=== PATIENT | male | born 1970 | race Caucasian/White ===

== ENCOUNTER 2022-09-29 08:10 | Inpatient (IN) | payer BC ==
[~2022-09-29] VITALS: Ht 180.3 cm; Wt 115.0 kg
[2022-09-29] MEDS ORDERED: ondansetron/PF 4mg/2ml inj IV ONE (08:20)
[2022-09-29] MEDS ORDERED: morphine 4 MG/ML inj SYRINge IV ONE (08:20)
[2022-09-29 08:42] LABS: BASOPHILS % (AUTO) 0.4 % (0-1); EOSINOPHILS % (AUTO) 0.4 % (0-6); HEMATOCRIT 41.4 % (42.0-52.0); HEMOGLOBIN 13.4 g/dl (14.0-17.9); LYMPHOCYTES # (AUTO) 1.3 X10'3 (1.1-4.8); MEAN CORPUSCULAR HGB CONC 32.4 g/dL (33.0-36.5); MEAN CORPUSCULAR VOLUME 89.7 FL (78-98); MEAN PLATELET VOLUME 8.2 FL (7.4-10.4); MONOCYTES # (AUTO) 0.5 X10'3 (0-0.9); NEUTROPHILS # (AUTO) 7.1 X10'3 (1.8-7.7); NEUTROPHILS % (AUTO) 79.2 % (42-75); PLATELET COUNT 180 X10'3 (140-440); RED BLOOD COUNT 4.61 X10'6 (4.70-6.10); RED CELL DISTRIBUTION WIDTH 14.3 % (11.5-14.5)
[2022-09-29 09:00] LABS: ALANINE AMINOTRANSFERASE 109 U/L (12-78); ALBUMIN 3.6 G/DL (3.4-5.0); ALKALINE PHOSPHATASE 67 IU/L (46-116); ANION GAP 12 (8-16); ASPARTATE AMINO TRANSFERASE 46 U/L (10-37); BILIRUBIN,TOTAL 0.4 MG/DL (0.1-1.0); BLOOD UREA NITROGEN 19 MG/DL (7-18); BUN/CREATININE RATIO 10.3 (5.4-32.0); CALCIUM 8.6 MG/DL (8.5-10.1); CHLORIDE 103 MMOL/L (99-107); CREATININE 1.84 MG/DL (0.60-1.10); GLUCOSE 305 MG/DL (70-104); POTASSIUM 3.7 MMOL/L (3.5-5.1); SODIUM 137 MMOL/L (135-145); TOTAL CARBON DIOXIDE 21.7 MMOL/L (24-32); TOTAL PROTEIN 7.2 G/DL (6.4-8.2); eGFR 39 ML/MIN
[2022-09-29 09:01] LABS: D-DIMER < 0.19 MG/L FEU (0-0.50)
[2022-09-29] MEDS ORDERED: potassium Cl 40MEQ/1/2NS 520ml 520 ML IV PRN (10:10)
[2022-09-29] MEDS ORDERED: acetaminophen 325mg tablet PO PRN ×2 (10:10)
[2022-09-29] MEDS ORDERED: ondansetron/PF 4mg/2ml inj IV PRN (10:10)
[2022-09-29] MEDS ORDERED: nitroGLYCERIN 0.4mg SUBLingual tab SL PRN (10:10)
[2022-09-29] MEDS ORDERED: aminophylline 250mg/10ml inj. IV PRN (10:10)
[2022-09-29] MEDS ORDERED: HYDROcodone/acetaminophen 5mg/325mg tablet PO PRN (10:10)
[2022-09-29] MEDS ORDERED: metoprolol tartrate 1mg/ml inj IV PRN (10:10)
[2022-09-29] MEDS ORDERED: pantoprazole 40mg Tablet.DR PO SCH (10:10)
[2022-09-29] MEDS ORDERED: magnesium 4gm in 100ml NS 100 ML IV PRN (10:10)
[2022-09-29] MEDS ORDERED: regadenoson 0.4mg/5ml syringe IV PRN (10:10)
[2022-09-29] MEDS ORDERED: morphine 2 MG/ML inj. syringe IV PRN ×2 (10:10)
[2022-09-29] MEDS ORDERED: potassium Cl 20 mEq SR tablet PO PRN ×2 (10:10)
[2022-09-29] MEDS ORDERED: magnesium Cl slow-release 64mg tablet PO PRN (10:10)
[2022-09-29] MEDS ORDERED: HYDROcodone/acetaminophen 10/325mg tab PO PRN (10:10)
[2022-09-29] MEDS ORDERED: NIFE90TA44 PO (10:35)
[2022-09-29] MEDS ORDERED: DOXA8TAB2 PO ×2 (10:35→13:18)
[2022-09-29] MEDS ORDERED: AZIL1TAB3 PO (10:35)
[2022-09-29] MEDS ORDERED: CLON0.2T PO ×2 (10:35→13:18)
[2022-09-29] MEDS ORDERED: ROSU40TA PO (10:35)
[2022-09-29] MEDS ORDERED: METF-900 PO (10:35)
[2022-09-29] MEDS ORDERED: ASPI-611 PO (10:35)
[2022-09-29] MEDS ORDERED: EVOL140P3 SUBCUT ×2 (10:35→13:16)
[2022-09-29] MEDS ORDERED: SPIR100T5 PO (10:35)
[2022-09-29] MEDS ORDERED: MINO10TA16 PO ×2 (10:35→13:18)
[2022-09-29] MEDS ORDERED: LABE100T8 PO ×2 (10:35→13:18)
--- NOTE | 2022-09-29 10:45 | NUR ---
MESSAGE: JESSICA CRUZ S. IN ROOM 9 MED REC IS COMPLETED, STRESS TEST WILL BE DONE AT 1530 TODAY, EARLENE REZA
[2022-09-29 11:04] LABS: HEMOGLOBIN A1C 6.7 % (4.5-6.2)
[2022-09-29] MEDS: normal saline 1000ml 1,000 ML IV SCH ×2 (11:19→23:53)
[2022-09-29] MEDS ORDERED: heparin 10,000 units/1 ML INJ IV ONE (11:20)
--- NOTE | 2022-09-29 11:23 | NUR ---
CALLED DR. PURVIS ABOUT THE TEOP IF 425, STRESS TEST HAS BEEN CANCELED AND DR. PURVIS IS CALLING THE CARD TEAM
[2022-09-29 12:15] LABS: BASOPHILS % (AUTO) 0.1 % (0-1); EOSINOPHILS % (AUTO) 0.1 % (0-6); HEMATOCRIT 42.4 % (42.0-52.0); HEMOGLOBIN 13.7 g/dl (14.0-17.9); LYMPHOCYTES # (AUTO) 1.1 X10'3 (1.1-4.8); LYMPHOCYTES % (AUTO) 9.3 % (21-51); MEAN CORPUSCULAR HGB CONC 32.4 g/dL (33.0-36.5); MEAN CORPUSCULAR VOLUME 89.6 FL (78-98); MEAN PLATELET VOLUME 8.1 FL (7.4-10.4); MONOCYTES # (AUTO) 0.4 X10'3 (0-0.9); MONOCYTES % (AUTO) 3.4 % (2-12); NEUTROPHILS # (AUTO) 10.5 X10'3 (1.8-7.7); NEUTROPHILS % (AUTO) 87.1 % (42-75); PLATELET COUNT 198 X10'3 (140-440); RED BLOOD COUNT 4.73 X10'6 (4.70-6.10); RED CELL DISTRIBUTION WIDTH 14.3 % (11.5-14.5)
[2022-09-29] MEDS: heparin 25,000 UNIT/250ml bag 250 ML IV PRN (12:18)
[2022-09-29 12:20] LABS: APTT 25 SECONDS (22-32)
[2022-09-29] MEDS ORDERED: NIFE60TA79 PO (13:16)
[2022-09-29] MEDS ORDERED: METF-1203 PO (13:18)
[2022-09-29] MEDS ORDERED: nitroGLYCERIN-Tridil 50MG/D5W 250 ML IV ONE (16:29)
[2022-09-29] MEDS ORDERED: iohexol 350MG/ML 100ml bottle IV ONE ×2 (16:29→18:28)
[2022-09-29] MEDS ORDERED: LIDOcaine 1% (10mg/ml) 2ml vial ONE (16:29)
[2022-09-29] MEDS ORDERED: verapamil 2.5 mg/ml inj IV ONE (16:29)
[2022-09-29] MEDS ORDERED: heparin 1,000unit/ml 10ml vial 10 ML ONE ×2 (16:29→18:32)
[2022-09-29] MEDS ORDERED: fentaNYL/PF 50MCG/1 ML 2ML syringe ONE (16:29)
[2022-09-29] MEDS ORDERED: midazolam 1 mg/ML 2ml injection ONE (16:29)
[2022-09-29 17:39] VITALS: BP 138/78
--- NOTE | 2022-09-29 18:13 | NUR ---
Pt prepped and sent to photographic laboratory technician at appros 1805.
[2022-09-29 19:31] VITALS: BP 143/88
[2022-09-29] MEDS: cloNIDine 0.1 mg tablet PO SCH (19:49)
[2022-09-29 20:00] VITALS: BP 147/78
[2022-09-29] MEDS ORDERED: heparin, porcine 5000 units/ml vial SQ SCH (20:00)
[2022-09-29] MEDS ORDERED: MESSAGE TO NURSING PO ONE ×7 (20:05)
[2022-09-29] MEDS ORDERED: MESSAGE TO PHARMACY IJ ONE (20:05)
[2022-09-29] MEDS ORDERED: temazepam 15mg capsule PO PRN ×2 (20:25→21:00)
[2022-09-29] MEDS ORDERED: ALPRAZolam 0.25mg tablet PO PRN (20:25)
[2022-09-29] MEDS: pantoprazole 40mg Tablet.DR PO SCH (20:42)
[2022-09-29 21:00] VITALS: BP 143/84
[2022-09-29 21:16] LABS: APTT 79 SECONDS (22-32)
[2022-09-29 22:00] VITALS: BP 130/76
[2022-09-29 23:58] LABS: ABG BASE EXCESS -2.1 mmol/L (-2.0-2.0); ABG HCO3 21.9 mmol/L (22.0-26.0); ABG OXYGEN SATURATION 95.6 % (94-97); ABG PCO2 (T) 35.1 mmHg (35.0-48.0); ABG PO2 (T) 74.1 mmHg (75.0-100.0); ALLEN'S TEST Yes; FCOHb 0.1 % (0.0-3.9); FMetHb 0.3 % (0.0-1.5); FO2Hb 95.2 % (94-97); PATIENT TEMPERATURE 36.9; TOTAL HEMOGLOBIN 13.8 G/dl (14.0-17.9)
[2022-09-30 02:00] VITALS: BP 150/67
--- NOTE | 2022-09-30 06:26 | NUR ---
Problems reprioritized. Patient report given, questions answered & plan of care reviewed with Aravind REZA.
--- NOTE | 2022-09-30 06:43 | NUR ---
Problems reprioritized. Patient report given, questions answered & plan of care reviewed with BRIDGER REZA.
[2022-09-30 07:00] VITALS: BP 153/89
[2022-09-30 07:08] LABS: BASOPHILS % (AUTO) 0.5 % (0-1); EOSINOPHILS # (AUTO) 0.2 X10'3 (0-0.9); EOSINOPHILS % (AUTO) 2.2 % (0-6); HEMATOCRIT 39.8 % (42.0-52.0); HEMOGLOBIN 13.5 g/dl (14.0-17.9); LYMPHOCYTES # (AUTO) 2.8 X10'3 (1.1-4.8); LYMPHOCYTES % (AUTO) 28.6 % (21-51); MEAN CORPUSCULAR HEMOGLOBIN 30.3 PG (27.0-31.0); MEAN CORPUSCULAR VOLUME 89.1 FL (78-98); MEAN PLATELET VOLUME 8.2 FL (7.4-10.4); MONOCYTES # (AUTO) 0.6 X10'3 (0-0.9); MONOCYTES % (AUTO) 6.4 % (2-12); NEUTROPHILS # (AUTO) 6.2 X10'3 (1.8-7.7); NEUTROPHILS % (AUTO) 62.3 % (42-75); PLATELET COUNT 183 X10'3 (140-440); RED BLOOD COUNT 4.47 X10'6 (4.70-6.10); RED CELL DISTRIBUTION WIDTH 14.3 % (11.5-14.5); WHITE BLOOD COUNT 9.9 X10'3 (4.5-11.0)
[2022-09-30 07:10] LABS: APTT 32 SECONDS (22-32)
[2022-09-30] MEDS: cloNIDine 0.1 mg tablet PO SCH ×2 (07:51→19:27)
[2022-09-30] MEDS: NIFEdipine XL 30mg tablet PO SCH (07:51)
[2022-09-30] MEDS: pantoprazole 40mg Tablet.DR PO SCH (07:52)
[2022-09-30] MEDS: doxazosin mesylate 2mg tablet PO SCH (07:52)
[2022-09-30 08:35] LABS: ALANINE AMINOTRANSFERASE 109 U/L (12-78); ALBUMIN 3.5 G/DL (3.4-5.0); ALBUMIN/GLOBULIN RATIO 0.9 (1.1-1.5); ALKALINE PHOSPHATASE 66 IU/L (46-116); ANION GAP 7 (8-16); ASPARTATE AMINO TRANSFERASE 67 U/L (10-37); BILIRUBIN,TOTAL 1.1 MG/DL (0.1-1.0); BLOOD UREA NITROGEN 12 MG/DL (7-18); BUN/CREATININE RATIO 9.8 (5.4-32.0); CALCIUM 8.4 MG/DL (8.5-10.1); CHLORIDE 105 MMOL/L (99-107); CREATININE 1.23 MG/DL (0.60-1.10); GLUCOSE 127 MG/DL (70-104); POTASSIUM 3.9 MMOL/L (3.5-5.1); SODIUM 138 MMOL/L (135-145); TOTAL CARBON DIOXIDE 25.8 MMOL/L (24-32); TOTAL PROTEIN 7.2 G/DL (6.4-8.2); eGFR 62 ML/MIN
--- NOTE | 2022-09-30 08:54 | NUR ---
PAGER ID: [phone] MESSAGE: Timothy [id number], pt critical lab value, Trop [phone]
[2022-09-30] MEDS: heparin 10,000 units/1 ML INJ IV PRN (09:06)
[2022-09-30] MEDS ORDERED: MESSAGE TO NURSING PO ONE ×2 (10:00)
[2022-09-30] MEDS ORDERED: MESSAGE TO PHARMACY IJ ONE (10:00)
[2022-09-30] MEDS ORDERED: cefazolin/dext.iso 2gm/100ml 100 ML IV ONE (10:00)
[2022-09-30] MEDS ORDERED: DEXTROSE 15 GM of carb/4 tabs (each vial/BOTTLE has 4 tablets) PO PRN ×2 (10:05)
[2022-09-30] MEDS ORDERED: dextrose 50%-water 50ml dispensing syringe IV PRN ×2 (10:05)
[2022-09-30] MEDS ORDERED: glucagon, human recombinant 1mg kit SUBCUT PRN (10:05)
[2022-09-30] MEDS ORDERED: MESSAGE TO PHARMACY PO ONE (10:05)
[2022-09-30 11:12] VITALS: BP 133/69
--- NOTE | 2022-09-30 14:04 | NUR ---
Cardiac consult: Likely intended to be a DM consult in view of pt with h/o T2DM and no lipid panel this admit. Patient's DM is well controlled with A1c 6.7%, DM education not warranted at this time. Will continue to follow. Addendum: 09/30/22 at [address] Amended: Links added.
[2022-09-30] MEDS: insulin Lispro (HumaLOG) vial - multi-dose SQ SCH (14:12)
[2022-09-30] MEDS: normal saline 1000ml 1,000 ML IV SCH (14:51)
[2022-09-30 15:20] VITALS: BP 122/64
[2022-09-30] MEDS: heparin 25,000 UNIT/250ml bag 250 ML IV PRN (16:29)
[2022-09-30 18:00] VITALS: BP 148/55
[2022-09-30] MEDS: insulin glargine (Lantus) pen - multi-dose SQ SCH (21:00)
[2022-09-30 22:00] VITALS: BP 124/70
[2022-10-01 02:00] VITALS: BP 125/72
[2022-10-01] MEDS: normal saline 1000ml 1,000 ML IV SCH ×3 (05:09→21:35)
--- NOTE | 2022-10-01 06:22 | NUR ---
Problems reprioritized. Patient report given, questions answered & plan of care reviewed with Esau REZA.
--- NOTE | 2022-10-01 06:48 | NUR ---
Patient in room PCU 3013. I have received report from Radha REZA and had the opportunity to ask questions and assume patient care.
[2022-10-01 07:05] LABS: BASOPHILS # (AUTO) 0.1 X10'3 (0-0.2); BASOPHILS % (AUTO) 0.6 % (0-1); EOSINOPHILS # (AUTO) 0.3 X10'3 (0-0.9); HEMATOCRIT 41.3 % (42.0-52.0); HEMOGLOBIN 13.5 g/dl (14.0-17.9); LYMPHOCYTES # (AUTO) 2.4 X10'3 (1.1-4.8); MEAN CORPUSCULAR HEMOGLOBIN 29.5 PG (27.0-31.0); MEAN CORPUSCULAR HGB CONC 32.7 g/dL (33.0-36.5); MEAN CORPUSCULAR VOLUME 90.2 FL (78-98); MEAN PLATELET VOLUME 8.2 FL (7.4-10.4); MONOCYTES # (AUTO) 0.6 X10'3 (0-0.9); NEUTROPHILS # (AUTO) 5.1 X10'3 (1.8-7.7); NEUTROPHILS % (AUTO) 60.4 % (42-75); PLATELET COUNT 183 X10'3 (140-440); RED BLOOD COUNT 4.57 X10'6 (4.70-6.10); RED CELL DISTRIBUTION WIDTH 14.2 % (11.5-14.5); WHITE BLOOD COUNT 8.5 X10'3 (4.5-11.0)
[2022-10-01 07:38] VITALS: BP 133/83
[2022-10-01 07:41] LABS: ALANINE AMINOTRANSFERASE 112 U/L (12-78); ALBUMIN 3.3 G/DL (3.4-5.0); ALBUMIN/GLOBULIN RATIO 0.9 (1.1-1.5); ALKALINE PHOSPHATASE 61 IU/L (46-116); ANION GAP 8 (8-16); ASPARTATE AMINO TRANSFERASE 56 U/L (10-37); BILIRUBIN,TOTAL 0.8 MG/DL (0.1-1.0); BLOOD UREA NITROGEN 13 MG/DL (7-18); BUN/CREATININE RATIO 11.6 (5.4-32.0); CALCIUM 8.8 MG/DL (8.5-10.1); CHLORIDE 105 MMOL/L (99-107); CREATININE 1.12 MG/DL (0.60-1.10); GLUCOSE 119 MG/DL (70-104); POTASSIUM 3.9 MMOL/L (3.5-5.1); SODIUM 138 MMOL/L (135-145); TOTAL CARBON DIOXIDE 25.4 MMOL/L (24-32); TOTAL PROTEIN 6.9 G/DL (6.4-8.2); eGFR 69 ML/MIN
[2022-10-01] MEDS: cloNIDine 0.1 mg tablet PO SCH ×2 (07:48→19:18)
[2022-10-01] MEDS: doxazosin mesylate 2mg tablet PO SCH (07:48)
[2022-10-01] MEDS: NIFEdipine XL 30mg tablet PO SCH (07:48)
[2022-10-01] MEDS: pantoprazole 40mg Tablet.DR PO SCH (07:49)
[2022-10-01] MEDS: insulin Lispro (HumaLOG) vial - multi-dose SQ SCH (10:43)
[2022-10-01 11:01] VITALS: BP 104/55
[2022-10-01] MEDS: heparin 25,000 UNIT/250ml bag 250 ML IV PRN (13:42)
[2022-10-01 15:30] VITALS: BP 128/76
--- NOTE | 2022-10-01 16:01 | NUR ---
Pt refused the afternoon insulin injection. Blood sugar has been very well controlled and he only needed 3 units of insulin as per protocol. Pt was educated and he thought it was best we skip the dose.
[2022-10-01] MEDS: heparin 10,000 units/1 ML INJ IV PRN (17:54)
[2022-10-01 18:00] VITALS: BP 116/77
[2022-10-01] MEDS: insulin glargine (Lantus) pen - multi-dose SQ SCH (21:00)
[2022-10-01 22:00] VITALS: BP 116/66
[2022-10-02 02:00] VITALS: BP 118/66
--- NOTE | 2022-10-02 06:59 | NUR ---
Problems reprioritized. Patient report given, questions answered & plan of care reviewed with Fransico REZA.
[2022-10-02 07:00] VITALS: BP 131/71
[2022-10-02] MEDS: doxazosin mesylate 2mg tablet PO SCH (08:04)
[2022-10-02] MEDS: cloNIDine 0.1 mg tablet PO SCH ×2 (08:04→19:12)
[2022-10-02] MEDS: pantoprazole 40mg Tablet.DR PO SCH (08:04)
[2022-10-02] MEDS: NIFEdipine XL 30mg tablet PO SCH (08:04)
[2022-10-02 08:43] LABS: BASOPHILS # (AUTO) 0.1 X10'3 (0-0.2); BASOPHILS % (AUTO) 0.7 % (0-1); EOSINOPHILS # (AUTO) 0.3 X10'3 (0-0.9); EOSINOPHILS % (AUTO) 4.6 % (0-6); HEMATOCRIT 42.7 % (42.0-52.0); HEMOGLOBIN 14.3 g/dl (14.0-17.9); LYMPHOCYTES # (AUTO) 1.8 X10'3 (1.1-4.8); LYMPHOCYTES % (AUTO) 24.5 % (21-51); MEAN CORPUSCULAR HEMOGLOBIN 29.9 PG (27.0-31.0); MEAN CORPUSCULAR HGB CONC 33.5 g/dL (33.0-36.5); MEAN CORPUSCULAR VOLUME 89.3 FL (78-98); MEAN PLATELET VOLUME 8.1 FL (7.4-10.4); MONOCYTES # (AUTO) 0.3 X10'3 (0-0.9); MONOCYTES % (AUTO) 4.1 % (2-12); NEUTROPHILS # (AUTO) 4.8 X10'3 (1.8-7.7); NEUTROPHILS % (AUTO) 66.1 % (42-75); PLATELET COUNT 196 X10'3 (140-440); RED BLOOD COUNT 4.78 X10'6 (4.70-6.10); RED CELL DISTRIBUTION WIDTH 14.3 % (11.5-14.5); WHITE BLOOD COUNT 7.3 X10'3 (4.5-11.0)
[2022-10-02 09:01] LABS: ALANINE AMINOTRANSFERASE 118 U/L (12-78); ALBUMIN 3.6 G/DL (3.4-5.0); ALBUMIN/GLOBULIN RATIO 0.9 (1.1-1.5); ALKALINE PHOSPHATASE 66 IU/L (46-116); ASPARTATE AMINO TRANSFERASE 51 U/L (10-37); BILIRUBIN,TOTAL 0.9 MG/DL (0.1-1.0); BLOOD UREA NITROGEN 14 MG/DL (7-18); BUN/CREATININE RATIO 11.7 (5.4-32.0); CHLORIDE 103 MMOL/L (99-107); GLUCOSE 227 MG/DL (70-104); TOTAL CARBON DIOXIDE 24.2 MMOL/L (24-32); TOTAL PROTEIN 7.7 G/DL (6.4-8.2); eGFR 64 ML/MIN
[2022-10-02 09:02] LABS: ANION GAP 9 (8-16); SODIUM 136 MMOL/L (135-145)
[2022-10-02 11:00] VITALS: BP 98/53
[2022-10-02] MEDS ORDERED: magnesium hydroxide 30ml (MOM) UD suspension PO ONE ×2 (12:50→12:55)
[2022-10-02] MEDS: allopurinol 100mg tablet PO SCH (15:10)
[2022-10-02 16:07] VITALS: BP 114/64
[2022-10-02 18:00] VITALS: BP 135/78
[2022-10-02] MEDS: insulin glargine (Lantus) pen - multi-dose SQ SCH (21:00)
[2022-10-02] MEDS: ringers solution, lacted 1,000 ML IV SCH ×3 (21:17→21:19)
[2022-10-02] MEDS: heparin 10,000 units/1 ML INJ IV PRN (21:36)
[2022-10-02 22:38] VITALS: BP 117/69
[2022-10-02] MEDS: normal saline 1000ml 1,000 ML IV SCH (23:40)
[2022-10-03 01:18] VITALS: BP 117/65
[2022-10-03 04:00] LABS: BASOPHILS % (AUTO) 0.4 % (0-1); EOSINOPHILS # (AUTO) 0.3 X10'3 (0-0.9); EOSINOPHILS % (AUTO) 3.7 % (0-6); HEMATOCRIT 42.2 % (42.0-52.0); HEMOGLOBIN 13.7 g/dl (14.0-17.9); LYMPHOCYTES # (AUTO) 2.1 X10'3 (1.1-4.8); LYMPHOCYTES % (AUTO) 22.1 % (21-51); MEAN CORPUSCULAR HEMOGLOBIN 29.2 PG (27.0-31.0); MEAN CORPUSCULAR HGB CONC 32.4 g/dL (33.0-36.5); MEAN PLATELET VOLUME 8.4 FL (7.4-10.4); MONOCYTES # (AUTO) 0.7 X10'3 (0-0.9); MONOCYTES % (AUTO) 6.9 % (2-12); NEUTROPHILS # (AUTO) 6.4 X10'3 (1.8-7.7); NEUTROPHILS % (AUTO) 66.9 % (42-75); PLATELET COUNT 197 X10'3 (140-440); RED BLOOD COUNT 4.69 X10'6 (4.70-6.10); RED CELL DISTRIBUTION WIDTH 14.1 % (11.5-14.5); WHITE BLOOD COUNT 9.5 X10'3 (4.5-11.0)
[2022-10-03 04:08] LABS: ALBUMIN 3.4 G/DL (3.4-5.0); ALBUMIN/GLOBULIN RATIO 0.9 (1.1-1.5); ANION GAP 8 (8-16); ASPARTATE AMINO TRANSFERASE 48 U/L (10-37); BILIRUBIN,TOTAL 0.7 MG/DL (0.1-1.0); BLOOD UREA NITROGEN 14 MG/DL (7-18); BUN/CREATININE RATIO 11.6 (5.4-32.0); CALCIUM 8.9 MG/DL (8.5-10.1); CHLORIDE 105 MMOL/L (99-107); CREATININE 1.21 MG/DL (0.60-1.10); GLUCOSE 129 MG/DL (70-104); POTASSIUM 4.2 MMOL/L (3.5-5.1); SODIUM 138 MMOL/L (135-145); TOTAL CARBON DIOXIDE 25.2 MMOL/L (24-32); TOTAL PROTEIN 7.2 G/DL (6.4-8.2); eGFR 63 ML/MIN
[2022-10-03 04:09] LABS: ALANINE AMINOTRANSFERASE 110 U/L (12-78); ALKALINE PHOSPHATASE 61 IU/L (46-116)
[2022-10-03] MEDS: heparin 25,000 UNIT/250ml bag 250 ML IV PRN ×2 (04:47→23:35)
[2022-10-03 07:24] VITALS: BP 132/85
[2022-10-03] MEDS: pantoprazole 40mg Tablet.DR PO SCH (08:28)
[2022-10-03] MEDS: allopurinol 100mg tablet PO SCH (08:28)
[2022-10-03] MEDS: cloNIDine 0.1 mg tablet PO SCH ×2 (08:28→19:06)
[2022-10-03] MEDS: doxazosin mesylate 2mg tablet PO SCH (08:29)
[2022-10-03] MEDS: NIFEdipine XL 30mg tablet PO SCH (08:29)
[2022-10-03 11:30] VITALS: BP 110/62
[2022-10-03 15:09] VITALS: BP 106/63
[2022-10-03] MEDS: normal saline 1000ml 1,000 ML IV SCH (15:15)
[2022-10-03 18:00] VITALS: BP 105/56
[2022-10-03] MEDS: ringers solution, lacted 1,000 ML IV SCH (18:00)
[2022-10-03] MEDS: insulin glargine (Lantus) pen - multi-dose SQ SCH (20:43)
[2022-10-03 22:35] VITALS: BP 127/82
[2022-10-04 02:23] VITALS: BP 116/71
[2022-10-04] MEDS: normal saline 1000ml 1,000 ML IV SCH ×2 (04:05→18:42)
[2022-10-04 06:52] LABS: BASOPHILS % (AUTO) 0.5 % (0-1); EOSINOPHILS # (AUTO) 0.3 X10'3 (0-0.9); EOSINOPHILS % (AUTO) 4.4 % (0-6); HEMATOCRIT 42.1 % (42.0-52.0); HEMOGLOBIN 14.1 g/dl (14.0-17.9); LYMPHOCYTES # (AUTO) 2.2 X10'3 (1.1-4.8); LYMPHOCYTES % (AUTO) 29.5 % (21-51); MEAN CORPUSCULAR HEMOGLOBIN 30.2 PG (27.0-31.0); MEAN CORPUSCULAR HGB CONC 33.6 g/dL (33.0-36.5); MEAN CORPUSCULAR VOLUME 89.9 FL (78-98); MEAN PLATELET VOLUME 8.1 FL (7.4-10.4); MONOCYTES # (AUTO) 0.5 X10'3 (0-0.9); MONOCYTES % (AUTO) 6.7 % (2-12); NEUTROPHILS # (AUTO) 4.4 X10'3 (1.8-7.7); NEUTROPHILS % (AUTO) 58.9 % (42-75); PLATELET COUNT 204 X10'3 (140-440); RED BLOOD COUNT 4.68 X10'6 (4.70-6.10); RED CELL DISTRIBUTION WIDTH 14.2 % (11.5-14.5); WHITE BLOOD COUNT 7.5 X10'3 (4.5-11.0)
[2022-10-04 07:00] VITALS: BP 140/82
[2022-10-04 07:14] LABS: ALANINE AMINOTRANSFERASE 136 U/L (12-78); ALBUMIN 3.7 G/DL (3.4-5.0); ALBUMIN/GLOBULIN RATIO 0.9 (1.1-1.5); ALKALINE PHOSPHATASE 68 IU/L (46-116); ANION GAP 10 (8-16); ASPARTATE AMINO TRANSFERASE 69 U/L (10-37); BILIRUBIN,TOTAL 0.6 MG/DL (0.1-1.0); BLOOD UREA NITROGEN 12 MG/DL (7-18); BUN/CREATININE RATIO 9.6 (5.4-32.0); CALCIUM 8.8 MG/DL (8.5-10.1); CHLORIDE 104 MMOL/L (99-107); CREATININE 1.25 MG/DL (0.60-1.10); GLUCOSE 106 MG/DL (70-104); SODIUM 140 MMOL/L (135-145); TOTAL CARBON DIOXIDE 26.3 MMOL/L (24-32); TOTAL PROTEIN 7.7 G/DL (6.4-8.2); eGFR 61 ML/MIN
[2022-10-04] MEDS: doxazosin mesylate 2mg tablet PO SCH (07:56)
[2022-10-04] MEDS: NIFEdipine XL 30mg tablet PO SCH (07:56)
[2022-10-04] MEDS: pantoprazole 40mg Tablet.DR PO SCH (07:56)
[2022-10-04] MEDS: allopurinol 100mg tablet PO SCH (07:57)
[2022-10-04] MEDS: cloNIDine 0.1 mg tablet PO SCH ×2 (07:57→20:48)
[2022-10-04] MEDS ORDERED: MESSAGE TO NURSING PO ONE (08:20)
[2022-10-04] MEDS ORDERED: MESSAGE TO PHARMACY IJ ONE (08:20)
[2022-10-04] MEDS ORDERED: dextrose 50%-water 50ml dispensing syringe IV PRN (08:20)
--- NOTE | 2022-10-04 09:28 | NUR ---
Initial: Pt admit DX CAD, HTN, and CKD 3 hx T2DM A1C 6.7% per EMR. Pt PO ~100% most carb controlled diet meeting ~93% kcal and 100% protein estimated needs. Pending OR tomorrow for CABG per EMR. LBM 10/02. No nutrition interventions at this time; consider Kapil ONS for wound healing once post-op. Will continue to follow. Rec: 1. continue carb controlled diet 2. once post-op; consider Kapil ONS and MVI for wound healing 3. routine bowel care 4. weekly wts Addendum: 10/04/22 at [address] Amended: Links added.
[2022-10-04 11:00] VITALS: BP 115/62
[2022-10-04] MEDS: ringers solution, lacted 1,000 ML IV SCH (14:00)
[2022-10-04 16:09] VITALS: BP 116/67
[2022-10-04 18:00] VITALS: BP 117/60
[2022-10-04] MEDS: heparin 25,000 UNIT/250ml bag 250 ML IV PRN (18:44)
[2022-10-04] MEDS: heparin 10,000 units/1 ML INJ IV PRN (20:39)
[2022-10-04] MEDS: insulin glargine (Lantus) pen - multi-dose SQ SCH (21:00)
[2022-10-04 23:10] VITALS: BP 146/93
[2022-10-05] VITALS (16 sets, daily range): BP systolic 109–206; BP diastolic 52–113
[2022-10-05] MEDS ORDERED: heparin 25,000 UNIT/250ml bag 250 ML IV PRN (04:45)
[2022-10-05] MEDS ORDERED: cefazolin/dext.iso 2gm/50ml 50 ML IV ONE (05:00)
[2022-10-05] MEDS ORDERED: insulin glargine (Lantus) pen - multi-dose SQ PRN ×2 (05:30→13:10)
[2022-10-05] MEDS ORDERED: gabapentin 400mg capsule PO ONE (05:30)
[2022-10-05] MEDS ORDERED: epiNEPHrine 1 mg/ml inj ONE (05:49)
[2022-10-05] MEDS ORDERED: ceFAZolin 1000mg inj ONE (05:50)
[2022-10-05] MEDS ORDERED: BUPIVAcaine 0.5% inj/PF 30 ML ONE ×2 (05:50→06:58)
--- NOTE | 2022-10-05 06:56 | NUR ---
Called Dr Alcazar: missing pre op meds: beta orion, pepcid, ativan. He is on his way up to the floor and will review meds.
[2022-10-05] MEDS ORDERED: metoprolol succinate 25mg (24-HOUR) SR. Tablet PO ONE (07:00)
--- NOTE | 2022-10-05 07:04 | NUR ---
Per Dr Alcazar: give protonix, xanax, elmira, and toprol xl. Ok to miss does the rest of the PO meds.
[2022-10-05] MEDS: pantoprazole 40mg Tablet.DR PO SCH (07:18)
[2022-10-05] MEDS ORDERED: albumin (Human) 5% 250ml 250 ML IV ONE ×2 (07:35)
[2022-10-05] MEDS ORDERED: propofol inj 20 ML IV ONE (07:35)
[2022-10-05] MEDS ORDERED: LIDOcaine 2% (20mg/ml) 5ml vial ONE (07:35)
[2022-10-05] MEDS ORDERED: MIDAZolam 1mg/ml 10ml vial ONE (07:44)
[2022-10-05] MEDS ORDERED: fentaNYL /PF 50mcg/ml 5ml ampule ONE ×3 (07:44→10:52)
--- NOTE | 2022-10-05 07:45 | NUR ---
Pt taken to [facility] - all personal belongings were sent home with sister Sherly.
[2022-10-05] MEDS ORDERED: nitroGLYCERIN in D5W 50mg/250ml (Tridil) infusion IV ONE (07:48)
[2022-10-05] MEDS ORDERED: dexamethasone sod phosphate 10mg/ml inj ONE (07:48)
[2022-10-05] MEDS ORDERED: ondansetron/PF 4mg/2ml inj ONE (07:48)
[2022-10-05] MEDS ORDERED: NORepinephrine 8 MG in NS 250 ML BAG (32 mcg/ml) IV ONE (07:48)
[2022-10-05] MEDS ORDERED: rocuronium 10mg/ml inj IV ONE ×5 (07:48→10:52)
[2022-10-05] MEDS ORDERED: sevoflurane 250ml liquid IH ONE (07:48)
[2022-10-05] MEDS: doxazosin mesylate 2mg tablet PO SCH (08:00)
[2022-10-05] MEDS: NIFEdipine XL 30mg tablet PO SCH (08:00)
[2022-10-05] MEDS: cloNIDine 0.1 mg tablet PO SCH (08:00)
[2022-10-05] MEDS: allopurinol 100mg tablet PO SCH (08:01)
[2022-10-05] MEDS: ROPIVAcaine 0.2%/PF PUMP 545 ML MEDSTERN SCH ×2 (08:15→13:25)
[2022-10-05 08:35] LABS: ABG BASE EXCESS -3.7 mmol/L (-2.0-2.0); ABG HCO3 21.8 mmol/L (22.0-26.0); ABG OXYGEN SATURATION 99.6 % (94-97); ABG PCO2 41.2 mmHg (35.0-48.0); ABG PO2 253.2 mmHg (75.0-100.0); CL (ABG) 106 mmol/L (99-107); FCOHb 0.3 % (0.0-3.9); FMetHb 0.3 % (0.0-1.5); GLUCOSE (ABG) 122 mg/dl (70-104); IONIZED CA (ABG) 1.21 mmol/L (1.10-1.30); K (ABG) 3.9 mmol/L (3.5-5.1); TOTAL HEMOGLOBIN 13.4 G/dl (14.0-17.9)
[2022-10-05 08:58] LABS: ACT @ 1.70 U 256 SEC (193-297); ACT @ 2.84 U 350 SEC (260-420); BASELINE ACT 142 SEC (101-148)
[2022-10-05] MEDS ORDERED: heparin 10,000 units/1 ML INJ ONE (09:00)
[2022-10-05] MEDS ORDERED: epiNEPHrine 1 mg/ml inj IU ONE (09:04)
[2022-10-05] MEDS ORDERED: heparin 10,000 units/1 ML INJ IR ONE (09:05)
[2022-10-05] MEDS ORDERED: ceFAZolin 1000mg inj IR ONE (09:06)
[2022-10-05] MEDS ORDERED: BUPIVAcaine 0.5% inj/PF 30 ml vial IJ ONE (09:08)
[2022-10-05] MEDS ORDERED: papaverine 30 mg/ml 2ml inj. ICAR ONE (09:09)
[2022-10-05] MEDS ORDERED: esmolol inj. 10 ML IV ONE (09:14)
[2022-10-05] MEDS ORDERED: labetalol 20mg/4ml (5mg/ml) syringe IV ONE (11:57)
[2022-10-05 12:17] LABS: ABG HCO3 21.3 mmol/L (22.0-26.0); ABG PCO2 44.4 mmHg (35.0-48.0); ABG PO2 143.6 mmHg (75.0-100.0); CL (ABG) 105 mmol/L (99-107); FCOHb 0.9 % (0.0-3.9); FMetHb 0.3 % (0.0-1.5); FO2Hb 97.8 % (94-97); GLUCOSE (ABG) 165 mg/dl (70-104); IONIZED CA (ABG) 1.17 mmol/L (1.10-1.30); K (ABG) 4.6 mmol/L (3.5-5.1); TOTAL HEMOGLOBIN 12.9 G/dl (14.0-17.9)
[2022-10-05 12:20] LABS: ACTIVATED CLOTTING TIME 137 SEC (101-148)
[2022-10-05] MEDS ORDERED: albumin (Human) 5% 250ml 250 ML IV PRN (13:10)
[2022-10-05] MEDS ORDERED: Neutra Phos packet PO PRN (13:10)
[2022-10-05] MEDS ORDERED: magnesium citrate 296ml oral solution PO PRN (13:10)
[2022-10-05] MEDS ORDERED: niCARDipine-NS 40mg/200ml IVPB 200 ML IV PRN (13:10)
[2022-10-05] MEDS ORDERED: magnesium hydroxide 30ml (MOM) UD suspension PO PRN (13:10)
[2022-10-05] MEDS ORDERED: dextrose 50%-water 50ml dispensing syringe IV PRN (13:10)
[2022-10-05] MEDS ORDERED: metoclopramide 5 mg/ml inj IV PRN (13:10)
[2022-10-05] MEDS ORDERED: magnesium 2GM in 50ml NS 50 ML IV PRN (13:10)
[2022-10-05] MEDS ORDERED: bisacodyl 10mg suppository rectal RC PRN (13:10)
[2022-10-05] MEDS ORDERED: mineral oil 133ml enema RC PRN (13:10)
[2022-10-05] MEDS ORDERED: ondansetron/PF 4mg/2ml inj IV PRN (13:10)
[2022-10-05] MEDS ORDERED: morphine 2 MG/ML inj. syringe IV PRN (13:10)
[2022-10-05] MEDS ORDERED: DOPamine 400mg/D5W 250ml 250 ML IV PRN (13:10)
[2022-10-05] MEDS ORDERED: acetaminophen 325mg tablet PO PRN (13:10)
[2022-10-05] MEDS ORDERED: nitroGLYCERIN-Tridil 50MG/D5W 250 ML IV PRN (13:10)
[2022-10-05] MEDS ORDERED: magnesium 4gm in 100ml NS 100 ML IV PRN (13:10)
[2022-10-05] MEDS ORDERED: morphine 4 MG/ML inj SYRINge IV PRN (13:10)
[2022-10-05] MEDS ORDERED: Insulin Reg/NS 100units/100mL 100 ML IV SCH (13:10)
[2022-10-05] MEDS ORDERED: sodium phosphate inj. 15 MMOL in dextrose 5%-water 250 ML IV PRN (13:10)
[2022-10-05] MEDS ORDERED: sodium phosphate inj. 30 MMOL in dextrose 5%-water 250 ML IV PRN (13:10)
[2022-10-05] MEDS ORDERED: potassium CL 10mEq/100ml bag 100 ML IV PRN (13:10)
[2022-10-05] MEDS: sodium chloride 0.45% 1,000 ML IV SCH (13:10)
[2022-10-05] MEDS ORDERED: potassium Cl 40MEQ/270ML bag 250 ML IV PRN (13:10)
[2022-10-05] MEDS ORDERED: potassium Cl 40MEQ/1/2NS 520ml 520 ML IV PRN (13:10)
[2022-10-05] MEDS ORDERED: potassium Cl 20 mEq SR tablet PO PRN (13:10)
[2022-10-05] MEDS ORDERED: normal saline 250ml IV soln 250 ML IV PRN (13:10)
[2022-10-05 13:47] LABS: BASOPHILS % (AUTO) 0.1 % (0-1); EOSINOPHILS % (AUTO) 0.2 % (0-6); HEMATOCRIT 36.7 % (42.0-52.0); HEMOGLOBIN 11.9 g/dl (14.0-17.9); LYMPHOCYTES % (AUTO) 5.9 % (21-51); MEAN CORPUSCULAR HGB CONC 32.4 g/dL (33.0-36.5); MEAN CORPUSCULAR VOLUME 89.7 FL (78-98); MONOCYTES # (AUTO) 0.7 X10'3 (0-0.9); MONOCYTES % (AUTO) 4.2 % (2-12); NEUTROPHILS # (AUTO) 14.5 X10'3 (1.8-7.7); NEUTROPHILS % (AUTO) 89.6 % (42-75); PLATELET COUNT 171 X10'3 (140-440); RED CELL DISTRIBUTION WIDTH 14.1 % (11.5-14.5); WHITE BLOOD COUNT 16.2 X10'3 (4.5-11.0)
[2022-10-05 13:47] LABS: ABG OXYGEN SATURATION 96.3 % (94-97); ABG PCO2 (T) 34.7 mmHg (35.0-48.0); ABG PO2 (T) 86.1 mmHg (75.0-100.0); FMetHb 0.3 % (0.0-1.5); PEEP 5 cm H2O; RESPIRATORY RATE 10 b/min; TIDAL VOLUME 650 mL
--- NOTE | 2022-10-05 14:00 | NUR ---
1320 Patient arrived via bed with [facility] team. Patient very hypertensive at time of arrival with SBP as high as 230. Nitro turned up and Cardene started per MD order. 4 mg of Morphine also given for patient's pain. Patient blood pressure responded well and the cardene was quickly titrated off. [address] elevation and Dr. Alcazar was called. He was not concerned at this time so no new orders for that. He was also told the ABG results and then he ordered for one amp of Bicarb to be given IVP x1.
[2022-10-05 14:04] LABS: APTT 27 SECONDS (22-32)
[2022-10-05 14:07] LABS: ALANINE AMINOTRANSFERASE 103 U/L (12-78); ALBUMIN 3.2 G/DL (3.4-5.0); ALBUMIN/GLOBULIN RATIO 1.1 (1.1-1.5); ALKALINE PHOSPHATASE 51 IU/L (46-116); ANION GAP 5 (8-16); ASPARTATE AMINO TRANSFERASE 55 U/L (10-37); BILIRUBIN,TOTAL 0.8 MG/DL (0.1-1.0); BLOOD UREA NITROGEN 10 MG/DL (7-18); CALCIUM 7.6 MG/DL (8.5-10.1); CHLORIDE 106 MMOL/L (99-107); CREATININE 1.11 MG/DL (0.60-1.10); GLUCOSE 157 MG/DL (70-104); MAGNESIUM 1.6 MG/DL (1.5-2.4); PHOSPHORUS 3.1 MG/DL (2.3-4.5); POTASSIUM 4.4 MMOL/L (3.5-5.1); SODIUM 136 MMOL/L (135-145); TOTAL PROTEIN 6.2 G/DL (6.4-8.2); eGFR 70 ML/MIN
[2022-10-05] MEDS: Insulin Reg/NS 100units/100mL 100 ML IV SCH (14:07)
--- NOTE | 2022-10-05 14:09 | NUR ---
Nutrition Consult: Pt s/p CABGx3 today per EMR; would benefit from written/verbal high protein/HH diet eds once appropriate post-op prior to discharge. Addendum: 10/05/22 at [address] Amended: Links added.
[2022-10-05] MEDS ORDERED: sodium bicarbonate (8.4%) inj. 1 MEQ/ML ML ONE (14:10)
[2022-10-05] MEDS ORDERED: sodium bicarbonate (8.4%) inj. 50 MEQ in dextrose 5%-water 1,000 ML IV SCH (14:10)
--- NOTE | 2022-10-05 14:30 | NUR ---
Dr. Alcazar bedside and very pleased with the patient's progress. He looked at the 12 leak and stated that the ST elevation was fine and he wasn't worried about it at this time.
[2022-10-05] MEDS: potassium Cl 20mEq/100mL bag 100 ML IV PRN ×2 (15:50→16:42)
[2022-10-05] MEDS: ceFAZolin/D5W- 1GM premix 50 ML IV SCH (15:50)
--- NOTE | 2022-10-05 16:21 | NUR ---
Dr. Alcazar stated to go ahead and extubate patient if weaning parameters are within normal limits
--- NOTE | 2022-10-05 16:25 | NUR ---
Patient extubated via RT. Patient placed on 4L NC and tolerated well.
--- NOTE | 2022-10-05 18:12 | NUR ---
Problems reprioritized. Patient report given, questions answered & plan of care reviewed with LIBIA Eid.
--- NOTE | 2022-10-05 18:31 | NUR ---
Patient in room CICU 2010. I have received report from Bozena REZA and had the opportunity to ask questions and assume patient care.
[2022-10-05] MEDS: HYDROcodone/acetaminophen 10/325mg tab PO PRN (19:15)
[2022-10-05] MEDS: sennosides/docusate sodium tablet PO SCH (20:00)
--- NOTE | 2022-10-05 20:10 | NUR ---
Pt laying in CICU bed 2011b, A&O x4, sleeping but wakes easily and answers questions appropriately. Heart tones clear, S1S2 with a pericardial rub present, pulses 3+, no edema noted. Lungs sounds clear bilateral upper and lower lobes. Pt able to SIMEON, CSM intact, equal strength throughout. Island dressing present over sternal incision; incision well approximated no bleeding noted at this time. Chest tubes x3 noted to anterior lower chest secured with suture, sanguinous output draining to 2 atriums. Pt has had some water to drink and is tolerating it well, no nausea or vomiting.
[2022-10-05 20:32] LABS: BASOPHILS % (AUTO) 0.1 % (0-1); EOSINOPHILS % (AUTO) 0 % (0-6); HEMATOCRIT 34.3 % (42.0-52.0); HEMOGLOBIN 11.5 g/dl (14.0-17.9); LYMPHOCYTES # (AUTO) 0.6 X10'3 (1.1-4.8); LYMPHOCYTES % (AUTO) 4.5 % (21-51); MEAN CORPUSCULAR HGB CONC 33.7 g/dL (33.0-36.5); MEAN CORPUSCULAR VOLUME 89.2 FL (78-98); MEAN PLATELET VOLUME 7.7 FL (7.4-10.4); MONOCYTES % (AUTO) 7.4 % (2-12); NEUTROPHILS # (AUTO) 11.8 X10'3 (1.8-7.7); PLATELET COUNT 180 X10'3 (140-440); RED BLOOD COUNT 3.84 X10'6 (4.70-6.10); RED CELL DISTRIBUTION WIDTH 14.3 % (11.5-14.5); WHITE BLOOD COUNT 13.4 X10'3 (4.5-11.0)
[2022-10-05 20:45] LABS: ALBUMIN 3.2 G/DL (3.4-5.0); ANION GAP 5 (8-16); BLOOD UREA NITROGEN 13 MG/DL (7-18); BUN/CREATININE RATIO 10.1 (5.4-32.0); CALCIUM 7.8 MG/DL (8.5-10.1); CHLORIDE 106 MMOL/L (99-107); CREATININE 1.29 MG/DL (0.60-1.10); GLUCOSE 107 MG/DL (70-104); MAGNESIUM 3.2 MG/DL (1.5-2.4); PHOSPHORUS 2.5 MG/DL (2.3-4.5); POTASSIUM 4.4 MMOL/L (3.5-5.1); SODIUM 137 MMOL/L (135-145); TOTAL CARBON DIOXIDE 26.5 MMOL/L (24-32); eGFR 58 ML/MIN
[2022-10-05] MEDS: mupirocin 2% nasal ointment 1gm UD NS SCH (20:54)
[2022-10-05] MEDS: atorvastatin 10mg tablet PO SCH (20:54)
[2022-10-05] MEDS: gabapentin 300mg capsule PO SCH (20:54)
[2022-10-05] MEDS: vancomycin/NS 1 GM ADD-VANTAGE 250 ML IV SCH (20:55)
[2022-10-06] VITALS (24 sets, daily range): BP systolic 100–159; BP diastolic 45–95
[2022-10-06] MEDS: ceFAZolin/D5W- 1GM premix 50 ML IV SCH ×3 (00:04→16:20)
[2022-10-06] MEDS: HYDROcodone/acetaminophen 10/325mg tab PO PRN ×5 (01:14→20:34)
--- NOTE | 2022-10-06 02:47 | NUR ---
Pt still resting comfortably, vital signs remaining stable. Pt's pain level is well controlled with norco.
[2022-10-06 03:08] LABS: BASOPHILS % (AUTO) 0 % (0-1); EOSINOPHILS % (AUTO) 0 % (0-6); HEMATOCRIT 33.8 % (42.0-52.0); HEMOGLOBIN 11.1 g/dl (14.0-17.9); LYMPHOCYTES # (AUTO) 1.2 X10'3 (1.1-4.8); LYMPHOCYTES % (AUTO) 8.2 % (21-51); MEAN CORPUSCULAR HEMOGLOBIN 29.7 PG (27.0-31.0); MEAN CORPUSCULAR HGB CONC 32.8 g/dL (33.0-36.5); MEAN CORPUSCULAR VOLUME 90.6 FL (78-98); MEAN PLATELET VOLUME 8.1 FL (7.4-10.4); MONOCYTES # (AUTO) 1.6 X10'3 (0-0.9); MONOCYTES % (AUTO) 10.8 % (2-12); NEUTROPHILS # (AUTO) 11.9 X10'3 (1.8-7.7); PLATELET COUNT 174 X10'3 (140-440); RED BLOOD COUNT 3.73 X10'6 (4.70-6.10); RED CELL DISTRIBUTION WIDTH 14.4 % (11.5-14.5); WHITE BLOOD COUNT 14.7 X10'3 (4.5-11.0)
[2022-10-06 03:15] LABS: APTT 28 SECONDS (22-32)
[2022-10-06 03:17] LABS: ALANINE AMINOTRANSFERASE 84 U/L (12-78); ALBUMIN 2.9 G/DL (3.4-5.0); ALKALINE PHOSPHATASE 45 IU/L (46-116); ANION GAP 5 (8-16); ASPARTATE AMINO TRANSFERASE 61 U/L (10-37); BILIRUBIN,TOTAL 0.4 MG/DL (0.1-1.0); BLOOD UREA NITROGEN 13 MG/DL (7-18); BUN/CREATININE RATIO 10.1 (5.4-32.0); CALCIUM 7.8 MG/DL (8.5-10.1); CHLORIDE 106 MMOL/L (99-107); CREATININE 1.29 MG/DL (0.60-1.10); GLUCOSE 118 MG/DL (70-104); MAGNESIUM 2.7 MG/DL (1.5-2.4); PHOSPHORUS 3.1 MG/DL (2.3-4.5); POTASSIUM 4.6 MMOL/L (3.5-5.1); SODIUM 136 MMOL/L (135-145); TOTAL CARBON DIOXIDE 25.1 MMOL/L (24-32); TOTAL PROTEIN 5.9 G/DL (6.4-8.2); eGFR 58 ML/MIN
--- NOTE | 2022-10-06 06:17 | NUR ---
Problems reprioritized. Patient report given, questions answered & plan of care reviewed with Bozena REZA.
--- NOTE | 2022-10-06 07:45 | NUR ---
Patient up in chair for breakfast and tolerated well. His sister was called at his request, to bring a few items in for him.
[2022-10-06] MEDS: allopurinol 100mg tablet PO SCH (09:46)
[2022-10-06] MEDS: aspirin 81mg tab.chew PO SCH (09:46)
[2022-10-06] MEDS: sennosides/docusate sodium tablet PO SCH ×2 (09:46→20:28)
[2022-10-06] MEDS: mupirocin 2% nasal ointment 1gm UD NS SCH ×2 (09:47→20:28)
[2022-10-06] MEDS: metoprolol tartrate 12.5mg (1/2 tablet) PO SCH ×2 (09:47→20:28)
[2022-10-06] MEDS: clopidogrel 75mg tablet PO SCH (09:47)
[2022-10-06] MEDS: gabapentin 300mg capsule PO SCH ×3 (09:47→20:28)
[2022-10-06] MEDS: vancomycin/NS 1 GM ADD-VANTAGE 250 ML IV SCH ×2 (09:48→20:28)
[2022-10-06] MEDS: Insulin Reg/NS 100units/100mL 100 ML IV SCH (14:50)
--- NOTE | 2022-10-06 18:19 | NUR ---
Problems reprioritized. Patient report given, questions answered & plan of care reviewed with LIBIA Bennett.
--- NOTE | 2022-10-06 18:57 | NUR ---
Dr. Alcazar at bedside to remove chest tubes x3. Chest tubes removed without difficulty by provider, vital signs stable.
[2022-10-06] MEDS: atorvastatin 10mg tablet PO SCH (20:28)
--- NOTE | 2022-10-06 21:38 | NUR ---
spoke with Dr. Alcazar regarding pts anxiety. Orders received for 15mg of restoril. If the first 15mg does not work, ok to give an additional 15mg for a total of 30mg. Addendum: 10/06/22 at 2140 by Sabrina Rubalcava RN Updated on pts BP 159/88 (112). No new orders, will continue to monitor
[2022-10-06] MEDS ORDERED: temazepam 15mg capsule PO ONE (21:40)
[2022-10-07] VITALS (18 sets, daily range): BP systolic 111–167; BP diastolic 54–99
[2022-10-07] MEDS: acetaminophen 325mg tablet PO PRN ×2 (00:29→19:51)
[2022-10-07] MEDS: ceFAZolin/D5W- 1GM premix 50 ML IV SCH (00:31)
[2022-10-07] MEDS: HYDROcodone/acetaminophen 10/325mg tab PO PRN ×5 (02:12→20:39)
[2022-10-07 02:21] LABS: BASOPHILS % (AUTO) 0.2 % (0-1); EOSINOPHILS # (AUTO) 0.1 X10'3 (0-0.9); EOSINOPHILS % (AUTO) 0.3 % (0-6); HEMATOCRIT 33.1 % (42.0-52.0); HEMOGLOBIN 11.1 g/dl (14.0-17.9); LYMPHOCYTES # (AUTO) 2.1 X10'3 (1.1-4.8); LYMPHOCYTES % (AUTO) 13.7 % (21-51); MEAN CORPUSCULAR HEMOGLOBIN 30.2 PG (27.0-31.0); MEAN CORPUSCULAR HGB CONC 33.5 g/dL (33.0-36.5); MEAN PLATELET VOLUME 7.6 FL (7.4-10.4); MONOCYTES # (AUTO) 1.6 X10'3 (0-0.9); MONOCYTES % (AUTO) 10.6 % (2-12); NEUTROPHILS # (AUTO) 11.5 X10'3 (1.8-7.7); NEUTROPHILS % (AUTO) 75.2 % (42-75); PLATELET COUNT 168 X10'3 (140-440); RED BLOOD COUNT 3.68 X10'6 (4.70-6.10); RED CELL DISTRIBUTION WIDTH 14.6 % (11.5-14.5); WHITE BLOOD COUNT 15.2 X10'3 (4.5-11.0)
[2022-10-07 02:36] LABS: ANION GAP 6 (8-16); BLOOD UREA NITROGEN 16 MG/DL (7-18); CALCIUM 8.1 MG/DL (8.5-10.1); CHLORIDE 104 MMOL/L (99-107); CREATININE 1.33 MG/DL (0.60-1.10); GLUCOSE 150 MG/DL (70-104); MAGNESIUM 2.3 MG/DL (1.5-2.4); PHOSPHORUS 2.4 MG/DL (2.3-4.5); POTASSIUM 4.2 MMOL/L (3.5-5.1); SODIUM 137 MMOL/L (135-145); TOTAL CARBON DIOXIDE 27.5 MMOL/L (24-32); eGFR 56 ML/MIN
[2022-10-07] MEDS: gabapentin 300mg capsule PO SCH ×2 (07:31→13:26)
[2022-10-07] MEDS: allopurinol 100mg tablet PO SCH (07:31)
[2022-10-07] MEDS: pantoprazole 40mg Tablet.DR PO SCH (07:31)
[2022-10-07] MEDS: sennosides/docusate sodium tablet PO SCH ×2 (07:31→19:43)
[2022-10-07] MEDS: clopidogrel 75mg tablet PO SCH (07:31)
[2022-10-07] MEDS: metoprolol tartrate 12.5mg (1/2 tablet) PO SCH (07:32)
[2022-10-07] MEDS: aspirin 81mg tab.chew PO SCH (07:32)
[2022-10-07] MEDS: mupirocin 2% nasal ointment 1gm UD NS SCH (07:32)
[2022-10-07] MEDS ORDERED: potassium Cl 40MEQ/1/2NS 520ml 520 ML IV PRN ×2 (08:10→09:15)
[2022-10-07] MEDS ORDERED: potassium CL 10mEq/100ml bag 100 ML IV PRN ×2 (08:10→09:15)
[2022-10-07] MEDS ORDERED: magnesium 4gm in 100ml NS 100 ML IV PRN ×2 (08:10→09:15)
[2022-10-07] MEDS ORDERED: magnesium 2GM in 50ml NS 50 ML IV PRN ×2 (08:10→09:15)
[2022-10-07] MEDS ORDERED: potassium Cl 20 mEq SR tablet PO PRN ×4 (08:10→09:15)
[2022-10-07] MEDS: ROPIVAcaine 0.2%/PF PUMP 545 ML MEDSTERN SCH ×2 (08:15)
[2022-10-07] MEDS ORDERED: potassium Cl 40MEQ/270ML bag 250 ML IV PRN (09:15)
[2022-10-07] MEDS ORDERED: potassium Cl 20mEq/100mL bag 100 ML IV PRN (09:15)
[2022-10-07] MEDS: sodium chloride 0.45% 1,000 ML IV SCH (13:10)
--- NOTE | 2022-10-07 14:28 | NUR ---
Nutrition consult: Pt seen at bedside with family present for written and verbal post-CABG heart healthy nutrition therapy education. Pt denies questions at this time. RD contact information provided and pt encouraged to reach out if needed. Pt endorses a good appetite which is evident with documented 75-100% PO intake throughout LOS. Pt denies need for additional protein or ONS at this time. Pt denies food allergies or difficulty chewing/swallowing. Pt reports LBM 10/03 though denies feeling constipated and states he thinks he will have a BM today. Pt currently receiving routine bowel care and RD informed pt of additional PRN bowel care. Pt states it's normal to go around three days without a BM. Will continue to follow. Recommendations: 1. Continue heart healthy CHO controlled diet 2. Routine bowel care 3. Weekly scaled wts Addendum: 10/07/22 at [address] Amended: Links added.
--- NOTE | 2022-10-07 17:46 | NUR ---
Pt transfer from ICU. Placed on tele. Weaned to 1L NC. No complications. Resting comfortably in bed. PRN norco given x1 with good affect. Total UOP 800.
[2022-10-07] MEDS: magnesium Cl slow-release 64mg tablet PO SCH (19:43)
[2022-10-07] MEDS: enoxaparin 40mg/0.4ml syringe SUBCUT SCH (19:43)
[2022-10-07] MEDS: temazepam 15mg capsule PO PRN (19:44)
[2022-10-07] MEDS ORDERED: metoprolol tartrate 12.5mg (1/2 tablet) PO SCH (20:00)
[2022-10-07] MEDS ORDERED: magnesium Cl slow-release 64mg tablet PO SCH (20:00)
[2022-10-07] MEDS: atorvastatin 10mg tablet PO SCH (20:39)
[2022-10-08] VITALS (10 sets, daily range): BP systolic 100–156; BP diastolic 66–106
[2022-10-08] MEDS: Insulin Reg/NS 100units/100mL 100 ML IV SCH (00:10)
[2022-10-08] MEDS: HYDROcodone/acetaminophen 10/325mg tab PO PRN ×4 (05:09→21:38)
--- NOTE | 2022-10-08 06:47 | NUR ---
Patient in room PCU 3009. I have received report from Kalyn and had the opportunity to ask questions and assume patient care.
[2022-10-08 06:50] LABS: BASOPHILS # (AUTO) 0.1 X10'3 (0-0.2); BASOPHILS % (AUTO) 0.4 % (0-1); EOSINOPHILS # (AUTO) 0.2 X10'3 (0-0.9); EOSINOPHILS % (AUTO) 1.4 % (0-6); HEMATOCRIT 34.5 % (42.0-52.0); HEMOGLOBIN 11.5 g/dl (14.0-17.9); LYMPHOCYTES % (AUTO) 13.7 % (21-51); MEAN CORPUSCULAR HGB CONC 33.2 g/dL (33.0-36.5); MEAN CORPUSCULAR VOLUME 90.4 FL (78-98); MEAN PLATELET VOLUME 7.9 FL (7.4-10.4); MONOCYTES # (AUTO) 1.3 X10'3 (0-0.9); MONOCYTES % (AUTO) 8.7 % (2-12); NEUTROPHILS # (AUTO) 11.2 X10'3 (1.8-7.7); NEUTROPHILS % (AUTO) 75.8 % (42-75); PLATELET COUNT 197 X10'3 (140-440); RED BLOOD COUNT 3.81 X10'6 (4.70-6.10); RED CELL DISTRIBUTION WIDTH 14.7 % (11.5-14.5); WHITE BLOOD COUNT 14.7 X10'3 (4.5-11.0)
[2022-10-08 07:31] LABS: ALBUMIN 2.8 G/DL (3.4-5.0); ANION GAP 9 (8-16); BLOOD UREA NITROGEN 13 MG/DL (7-18); BUN/CREATININE RATIO 10.6 (5.4-32.0); CALCIUM 8.3 MG/DL (8.5-10.1); CHLORIDE 104 MMOL/L (99-107); CREATININE 1.23 MG/DL (0.60-1.10); GLUCOSE 122 MG/DL (70-104); MAGNESIUM 2.3 MG/DL (1.5-2.4); PHOSPHORUS 2.4 MG/DL (2.3-4.5); POTASSIUM 4.1 MMOL/L (3.5-5.1); SODIUM 137 MMOL/L (135-145); TOTAL CARBON DIOXIDE 24.3 MMOL/L (24-32); eGFR 62 ML/MIN
[2022-10-08] MEDS: clopidogrel 75mg tablet PO SCH (08:00)
[2022-10-08] MEDS: magnesium Cl slow-release 64mg tablet PO SCH ×2 (08:00→19:16)
[2022-10-08] MEDS ORDERED: metoprolol tartrate 25mg tablet PO ONE (08:10)
[2022-10-08] MEDS ORDERED: furosemide 40mg/4ml inj IV ONE (08:10)
[2022-10-08] MEDS ORDERED: HYDR-3972 PO (08:17)
[2022-10-08] MEDS ORDERED: CLOP75TA34 PO (08:17)
[2022-10-08] MEDS ORDERED: ASPI81TA53 PO (08:17)
[2022-10-08] MEDS ORDERED: ATOR10TA PO (08:17)
[2022-10-08] MEDS ORDERED: METO50TA16 PO (08:17)
[2022-10-08] MEDS ORDERED: metoprolol tartrate 12.5mg (1/2 tablet) PO SCH ×2 (08:25→20:00)
[2022-10-08] MEDS: pantoprazole 40mg Tablet.DR PO SCH (08:59)
[2022-10-08] MEDS: sennosides/docusate sodium tablet PO SCH ×2 (09:01→21:39)
[2022-10-08] MEDS: cloNIDine 0.1 mg tablet PO SCH ×2 (09:03→21:38)
[2022-10-08] MEDS: allopurinol 100mg tablet PO SCH (09:04)
[2022-10-08] MEDS: aspirin 81mg tab.chew PO SCH (09:04)
--- NOTE | 2022-10-08 11:06 | NUR ---
Student Medication Administration: For this medication-pass time frame, all medication were reviewed, dispensed, administered and documented per hospital policy by markell Pena.
--- NOTE | 2022-10-08 11:31 | NUR ---
Student documentation: I have reviewed and agree with all interventions, assessments performed and documented by Becky student nurse.
--- NOTE | 2022-10-08 18:08 | NUR ---
Problems reprioritized. Patient report given, questions answered & plan of care reviewed with Kalyn.
[2022-10-08] MEDS: temazepam 15mg capsule PO PRN (21:38)
[2022-10-08] MEDS: enoxaparin 40mg/0.4ml syringe SUBCUT SCH (21:38)
[2022-10-08] MEDS: atorvastatin 10mg tablet PO SCH (21:39)
[2022-10-08] MEDS: metoprolol tartrate 50mg tablet PO SCH (21:39)
[2022-10-09 02:37] VITALS: BP 119/68
[2022-10-09 03:32] VITALS: BP 144/86
[2022-10-09 06:00] VITALS: BP 114/77
--- NOTE | 2022-10-09 06:29 | NUR ---
Patient in room PCU 3009. I have received report from Kalyn and had the opportunity to ask questions and assume patient care.
[2022-10-09 06:30] LABS: BASOPHILS # (AUTO) 0.1 X10'3 (0-0.2); BASOPHILS % (AUTO) 0.4 % (0-1); EOSINOPHILS # (AUTO) 0.2 X10'3 (0-0.9); EOSINOPHILS % (AUTO) 1.5 % (0-6); HEMATOCRIT 34.1 % (42.0-52.0); LYMPHOCYTES # (AUTO) 2.5 X10'3 (1.1-4.8); LYMPHOCYTES % (AUTO) 15.6 % (21-51); MEAN CORPUSCULAR HEMOGLOBIN 29.4 PG (27.0-31.0); MEAN CORPUSCULAR HGB CONC 32.3 g/dL (33.0-36.5); MEAN CORPUSCULAR VOLUME 90.9 FL (78-98); MEAN PLATELET VOLUME 8.1 FL (7.4-10.4); MONOCYTES # (AUTO) 1.4 X10'3 (0-0.9); MONOCYTES % (AUTO) 8.5 % (2-12); NEUTROPHILS # (AUTO) 12.1 X10'3 (1.8-7.7); PLATELET COUNT 237 X10'3 (140-440); RED BLOOD COUNT 3.75 X10'6 (4.70-6.10); RED CELL DISTRIBUTION WIDTH 14.1 % (11.5-14.5); WHITE BLOOD COUNT 16.3 X10'3 (4.5-11.0)
[2022-10-09 06:33] LABS: ALBUMIN 2.7 G/DL (3.4-5.0); ANION GAP 7 (8-16); BLOOD UREA NITROGEN 19 MG/DL (7-18); BUN/CREATININE RATIO 13.5 (5.4-32.0); CALCIUM 9.2 MG/DL (8.5-10.1); CHLORIDE 101 MMOL/L (99-107); CREATININE 1.41 MG/DL (0.60-1.10); GLUCOSE 115 MG/DL (70-104); MAGNESIUM 2.5 MG/DL (1.5-2.4); POTASSIUM 3.9 MMOL/L (3.5-5.1); SODIUM 136 MMOL/L (135-145); TOTAL CARBON DIOXIDE 27.9 MMOL/L (24-32); eGFR 53 ML/MIN
[2022-10-09] MEDS: magnesium Cl slow-release 64mg tablet PO SCH ×2 (08:00→20:42)
[2022-10-09] MEDS: sennosides/docusate sodium tablet PO SCH ×2 (08:00→20:00)
[2022-10-09] MEDS: ROPIVAcaine 0.2%/PF PUMP 545 ML MEDSTERN SCH ×2 (08:15)
[2022-10-09] MEDS: pantoprazole 40mg Tablet.DR PO SCH (09:03)
[2022-10-09] MEDS: cloNIDine 0.1 mg tablet PO SCH ×2 (09:04→20:43)
[2022-10-09] MEDS: metoprolol tartrate 50mg tablet PO SCH ×2 (09:07→20:42)
[2022-10-09] MEDS: aspirin 81mg tab.chew PO SCH (09:08)
[2022-10-09] MEDS: clopidogrel 75mg tablet PO SCH (09:08)
[2022-10-09] MEDS: allopurinol 100mg tablet PO SCH (09:09)
[2022-10-09] MEDS: Insulin Reg/NS 100units/100mL 100 ML IV SCH (09:30)
[2022-10-09 10:00] VITALS: BP 130/84
[2022-10-09 11:33] LABS: GLUCOSE, URINE NEGATIVE (Neg); KETONES,URINE TRACE mg/dl (Neg); LEUKOCYTE ESTERASE ,URINE NEGATIVE (Neg); NITRITES, URINE NEGATIVE (Neg); OCCULT BLOOD,URINE TRACE-INTACT (Neg); PH,URINE 5.5 (4.8-8.0); PROTEIN,URINE TRACE mg/dl (Neg); UROBILINOGEN,URINE 0.2 E.U/dL (0.2-1.0)
[2022-10-09 11:36] LABS: COLOR,URINE DARK YELLOW (Yellow); UA COLLECTION TYPE CLN CATCH MIDSTREAM
[2022-10-09 11:37] LABS: CLARITY,URINE SLIGHTLY CLOUDY (Clear)
[2022-10-09 11:43] LABS: BACTERIA,URINE FEW /HPF (Neg); MUCUS STRANDS MANY /LPF (Neg); RBC,URINE 0-2 /HPF (0-2); SQUAMOUS EPITHELIAL CELL,UR FEW /LPF (FEW); WBC,URINE 0-4 /HPF (0-4)
[2022-10-09] MEDS: sodium chloride 0.45% 1,000 ML IV SCH (13:10)
[2022-10-09] MEDS: HYDROcodone/acetaminophen 10/325mg tab PO PRN ×2 (16:11→20:44)
[2022-10-09 18:00] VITALS: BP 143/90
--- NOTE | 2022-10-09 18:02 | NUR ---
Problems reprioritized. Patient report given, questions answered & plan of care reviewed with Kalyn.
[2022-10-09] MEDS: enoxaparin 40mg/0.4ml syringe SUBCUT SCH (20:42)
[2022-10-09] MEDS: temazepam 15mg capsule PO PRN (20:43)
[2022-10-09] MEDS: atorvastatin 10mg tablet PO SCH (20:43)
[2022-10-09 22:00] VITALS: BP 111/76
[2022-10-10 02:19] VITALS: BP 129/89
[2022-10-10] MEDS: HYDROcodone/acetaminophen 10/325mg tab PO PRN (05:35)
[2022-10-10 06:00] VITALS: BP 127/83
[2022-10-10 06:39] LABS: MAGNESIUM 2.5 MG/DL (1.5-2.4); PHOSPHORUS 3.3 MG/DL (2.3-4.5)
--- NOTE | 2022-10-10 06:46 | NUR ---
Patient in room PCU 3009. I have received report from Kalyn and had the opportunity to ask questions and assume patient care.
[2022-10-10] MEDS: magnesium Cl slow-release 64mg tablet PO SCH (07:38)
[2022-10-10] MEDS: sennosides/docusate sodium tablet PO SCH (07:38)
[2022-10-10] MEDS: pantoprazole 40mg Tablet.DR PO SCH (07:43)
[2022-10-10] MEDS: aspirin 81mg tab.chew PO SCH (07:43)
[2022-10-10] MEDS: cloNIDine 0.1 mg tablet PO SCH (07:43)
[2022-10-10] MEDS: clopidogrel 75mg tablet PO SCH (07:43)
[2022-10-10] MEDS: metoprolol tartrate 50mg tablet PO SCH (07:43)
[2022-10-10] MEDS: allopurinol 100mg tablet PO SCH (07:44)
[2022-10-10 08:31] LABS: BASOPHILS # (AUTO) 0.1 X10'3 (0-0.2); BASOPHILS % (AUTO) 0.6 % (0-1); EOSINOPHILS # (AUTO) 0.4 X10'3 (0-0.9); EOSINOPHILS % (AUTO) 3.1 % (0-6); HEMATOCRIT 34.9 % (42.0-52.0); HEMOGLOBIN 11.7 g/dl (14.0-17.9); LYMPHOCYTES # (AUTO) 2.1 X10'3 (1.1-4.8); LYMPHOCYTES % (AUTO) 17.4 % (21-51); MEAN CORPUSCULAR HEMOGLOBIN 30.2 PG (27.0-31.0); MEAN CORPUSCULAR HGB CONC 33.6 g/dL (33.0-36.5); MEAN CORPUSCULAR VOLUME 89.8 FL (78-98); MEAN PLATELET VOLUME 8.1 FL (7.4-10.4); MONOCYTES # (AUTO) 0.9 X10'3 (0-0.9); MONOCYTES % (AUTO) 7.4 % (2-12); NEUTROPHILS # (AUTO) 8.4 X10'3 (1.8-7.7); NEUTROPHILS % (AUTO) 71.5 % (42-75); PLATELET COUNT 312 X10'3 (140-440); RED BLOOD COUNT 3.89 X10'6 (4.70-6.10); RED CELL DISTRIBUTION WIDTH 14.3 % (11.5-14.5); WHITE BLOOD COUNT 11.8 X10'3 (4.5-11.0)
[2022-10-10 08:52] LABS: ALANINE AMINOTRANSFERASE 69 U/L (12-78); ALBUMIN 2.9 G/DL (3.4-5.0); ALBUMIN/GLOBULIN RATIO 0.6 (1.1-1.5); ALKALINE PHOSPHATASE 74 IU/L (46-116); ANION GAP 9 (8-16); ASPARTATE AMINO TRANSFERASE 56 U/L (10-37); BILIRUBIN,TOTAL 0.7 MG/DL (0.1-1.0); BLOOD UREA NITROGEN 23 MG/DL (7-18); BUN/CREATININE RATIO 16.5 (5.4-32.0); CALCIUM 8.7 MG/DL (8.5-10.1); CHLORIDE 102 MMOL/L (99-107); CREATININE 1.39 MG/DL (0.60-1.10); GLUCOSE 121 MG/DL (70-104); SODIUM 136 MMOL/L (135-145); TOTAL CARBON DIOXIDE 25.4 MMOL/L (24-32); TOTAL PROTEIN 7.7 G/DL (6.4-8.2); eGFR 54 ML/MIN
[2022-10-10 09:00] VITALS: BP 141/81
--- NOTE | 2022-10-10 11:18 | NUR ---
Reviewed discharge instructions with patient. Patient verbalized understanding. Patient is alert, oriented and has expressed a readiness to discharge home. Patient and family gathered patient's belongings. Patient was wheeled downstairs to be driven home by family. patient's discharge meds were picked up by family prior to discharge.
== END 2022-10-10 11:21 | disposition home health service (06) | DRG 233 ==
LOC: ER 08:10 → ED HOLD 10:12 → PCU 3S 16:30 → CICU 2S 10-05 09:40 → PCU 3S 10-07 12:37
PROVIDERS: ADMIT Internal Medicine; ATTEND Internal Medicine
PROC: 4A023N7 Measurement of Cardiac Sampling and Pressure, Left Heart, Percutaneous Approach (ICD-10-PCS; principal; 2022-09-29)
PROC: B2111ZZ Fluoroscopy of Multiple Coronary Arteries using Low Osmolar Contrast (ICD-10-PCS; 2022-09-29)
PROC: B2151ZZ Fluoroscopy of Left Heart using Low Osmolar Contrast (ICD-10-PCS; 2022-09-29)
PROC: 02100Z9 Bypass Coronary Artery, One Artery from Left Internal Mammary, Open Approach (ICD-10-PCS; 2022-10-05)
PROC: 06BQ4ZZ Excision of Left Saphenous Vein, Percutaneous Endoscopic Approach (ICD-10-PCS; 2022-10-05)
PROC: 021109W Bypass Coronary Artery, Two Arteries from Aorta with Autologous Venous Tissue, Open Approach (ICD-10-PCS; 2022-10-05)
PROC: B246ZZ4 Ultrasonography of Right and Left Heart, Transesophageal (ICD-10-PCS; 2022-10-05)
DX: I25.110 Atherosclerotic heart disease of native coronary artery with unstable angina pectoris (principal); I21.4 Non-ST elevation (NSTEMI) myocardial infarction; T82.855A Stenosis of coronary artery stent, initial encounter; E11.22 Type 2 diabetes mellitus with diabetic chronic kidney disease; E66.01 Morbid (severe) obesity due to excess calories; Z20.822 Contact with and (suspected) exposure to COVID-19; E78.00 Pure hypercholesterolemia, unspecified; I12.9 Hypertensive chronic kidney disease with stage 1 through stage 4 chronic kidney disease, or unspecified chronic kidney disease; N18.30 Chronic kidney disease, stage 3 unspecified; Y83.1 Surgical operation with implant of artificial internal device as the cause of abnormal reaction of the patient, or of later complication, without mention of misadventure at the time of the procedure; Y92.89 Other specified places as the place of occurrence of the external cause; Z79.899 Other long term (current) drug therapy; Z82.49 Family history of ischemic heart disease and other diseases of the circulatory system; Z68.35 Body mass index [BMI] 35.0-35.9, adult
CPT/HCPCS: 93306; 93312; 93325; 93458; 93571; 99285; Z7506; Z7508; 36415; 36600; 71045; 71046; 80048; 80053; 81001; 82330; 82435; 82803; 82947; 82948; 83036; 83735; 83880; 84100; 84132; 84295; 84484; 85018; 85025; 85347; 85379; 85384; 85610; 85730; 86885; 86900; 86901; 86920; 87040; 87081; 87811; 93005; 93880; 93970; 94002; 94010; 94760; 97110; 97116; 97161; 97530; 99152; 99153; A4615; A4618; A6223; A6258; A6402; A6449; A7000; A7048; C1751; C1769; C1894; G0378; J0171; J0690; J1100; J1644; J1650; J1815; J1940; J2250; J2270; J2405; J2440; J2704; J2795; J3010; J3370; J3475; J3480; J3490; J7030; J7040; J7050; J7120; P9045; Q9967; S0020